=== PATIENT | male | born 1990 | race African-American/Black ===

== ENCOUNTER 2019-06-21 17:53 | Emergency (ER) | payer SELFPAY ==
[~2019-06-21] VITALS: Ht 185.4 cm; Wt 81.8 kg
[2019-06-21 18:31] VITALS: BP 148/98
[2019-06-21] MEDS ORDERED: ACETAMINOPHEN 500 MG TABLET PO ONE (18:45)
== END 2019-06-21 18:59 | disposition home or self-care (01) ==
LOC: EMS 17:55
DX: K08.89 Other specified disorders of teeth and supporting structures (principal); F17.210 Nicotine dependence, cigarettes, uncomplicated